=== PATIENT | male | born 1970 | race Caucasian/White ===

== ENCOUNTER → 2022-03-20 14:39 | Outpatient (CLI) | payer OTHER, SELFPAY ==
--- NOTE | 2022-03-20 | DI.ECHO.S_ITS ---
[facility] +---------+ : : [address] : [place] : : : : [id number] : : : : Phone: [phone]+ Echocardiogram Report + + :Name: DEIRDRE MAXWELL Study Date: 03/20/2022 Height: 67 in : :[facility] ReadingLocation: Weight: 172 lb: : Gender: Male BSA: 1.9 m2 : :: 1970 Age: 51 yrs BP: 92/66 mmHg: :Reason For Study: Congestive Heart Failure : :Ordering Physician: LIZ, : :RITIKA Performed By: Hernandez Pablo : :Referring: RITIKA HILL : + + Interpretation Summary The ejection fraction is estimated to be 25-30%. There is hypokinesis of the basal to mid anterior wall. The mid to distal anterior, entire anteroseptal, apical, mid to distal lateral and distal inferolateral ruiz are akinetic with myocardial thinning. Grade III diastolic dysfunction. The right ventricle is normal in size and function. No significant valvular abnormalities. Unable to estimate PASP. Procedure: A two-dimensional transthoracic echocardiogram with color flow and Doppler was performed. The study quality was technically adequate. There is no prior echocardiogram noted for this patient. A contrast injection of Definity was performed to improve assessment of LV function. Left Ventricle: The left ventricle is normal in size and wall thickness. The ejection fraction is estimated to be 25-30%. There is hypokinesis of the basal to mid anterior wall. The mid to distal anterior, entire anteroseptal, apical, mid to distal lateral and distal inferolateral ruiz are akinetic with myocardial thinning. Diastolic parameters suggest a restrictive filling pattern consistent with probable significantly elevated filling pressures. Right Ventricle: The right ventricle is normal in size and function. Atria: Both atria are normal in size. The interatrial septum grossly appears intact with no obvious evidence for an atrial septal defect. Mitral Valve: The mitral valve is normal in structure and function. There is trace mitral regurgitation. Aortic Valve: The aortic valve is normal in structure and function. There is no aortic valve stenosis. No aortic regurgitation is present. Tricuspid Valve: The tricuspid valve is normal in structure and function. No tricuspid regurgitation. Pulmonary artery pressures cannot be estimated because of the lack of a measurable TR jet velocity. Pulmonic Valve: The pulmonic valve is normal in structure and function. There is no pulmonic valvular regurgitation. Great Vessels: The aortic root is normal size. The ascending aorta could not be visualized. The IVC is of normal diameter and collapses greater than 50% with a sniff. This suggests a low right atrial pressure of 3 mm Hg. Pericardium/ Pleura There is no pericardial effusion. There is no pleural effusion. MMode/2D Measurements & Calculations LVIDd: 5.3 cm LVOT diam: 1.9 cm LVIDs: 4.3 cm Ao root diam: 2.6 cm FS: 19.6 % IVSd: 0.70 cm LVPWd: 0.60 cm LV cabrales. diameter/BSA (cm/m^2): 2.8 LV sys. diameter/BSA (cm/m^2): 2.3 LA dimension: 3.2 cm RA long axis: 4.2 cm LA A2 area: 19.1 cm2 LA A4 area: 14.6 cm2 LA length (vol): 5.6 cm LA vol: 42.6 ml LA vol index: 22.5 ml/m2 LVLs ap4: 7.8 cm LVLd ap2: 7.8 cm LVLs ap2: 7.1 cm TAPSE_phl: 2.1 cm Doppler Measurements & Calculations Ao V2 max: 143.0 cm/sec LVOT Max Barrington: 101.0 cm/sec Ao V2 mean: 98.6 cm/sec LV V1 max P.1 mmHg Ao max P.0 mmHg LV V1 VTI: 20.4 cm Ao mean P.0 mmHg ALDO(I,D): 2.0 cm2 Ao V2 VTI: 28.4 cm ALDO(V,D): 2.0 cm2 sev ratio: 0.72 ALDO indexed to BSA (cm^2/m^2): 1.1 MV E max barrington: 98.5 cm/sec SV(LVOT): 57.8 ml MV A max barrington: 28.7 cm/sec MV E/A: 3.4 Med Peak E' Barrington: 5.8 cm/sec E/E' med: 17.0 Lat Peak E' Barrington: 10.6 cm/sec E/E' lat: 9.3 E/e' average: 13.1 MV dec time: 0.14 sec AV VR_phl: 0.71 MV P1/2t-pr_phl: 42.0 msec ALDO(VTI)/BSA_phl: 1.1 Reading Physician:05:04 PM
== END ==
PROVIDERS: PCP Nurse Practitioner Family; Referring Provider Nurse Practitioner Acute Care; Visit Provider Nurse Practitioner Acute Care
DX: I50.20 Unspecified systolic (congestive) heart failure (principal)
CPT/HCPCS: C8929; Q9957

== ENCOUNTER → 2022-05-14 13:34 | Outpatient (CLI) | payer OTHER, SELFPAY ==
--- NOTE | 2022-05-14 13:39 | DI.RAD.S_ITS ---
PROCEDURE: XR CHEST 2V INDICATIONS: ASSESS PM LEADS TECHNIQUE: 2 views of the chest were acquired. COMPARISON: [facility], , XR CHEST 1 VIEW, 05/11/2022, 15:08. FINDINGS: Surgical changes and devices: Stable appearance and positioning of left chest AICD. Lungs and pleura: Lungs are clear. No pleural effusions or pneumothorax. Mediastinum: Mediastinal contours are normal. Heart size is normal. Bones and chest wall: No suspicious bony abnormalities. Soft tissues appear unremarkable. IMPRESSION: Stable chest compared to 05/11/2022. Dictated by: Kevin Clement RR Interpreted: Homar Box MD on 05/14/2022 at 14:03 Transcribed by: LUIS EDUARDO on 05/14/2022 at 14:04 Approved by: Homar Box M.D. on 05/14/2022 at 14:16
== END ==
PROVIDERS: PCP Nurse Practitioner Family; Referring Provider Internal Medicine Cardiovascular Disease; Visit Provider Internal Medicine Cardiovascular Disease
DX: I47.29 Other ventricular tachycardia (principal); Z95.810 Presence of automatic (implantable) cardiac defibrillator
CPT/HCPCS: 71046

== ENCOUNTER 2023-06-20 08:42 | Day surgery (SDC) | payer OTHER, SELFPAY ==
--- NOTE | 2023-06-20 | PATH_ITS ---
[facility] Accession Number: [id number] No. of containers..04 Tissue . 01 Material submitted: . PART A: colon - CECAL POLYPS X2 PART B: colon - TRANSVERSE COLON POLYPS PART C: colon - DESCENDING COLON POLYPS PART D: rectum - RECTAL POLYP . 01 Diagnosis: A. Cecal Polyps: Sessile serrated adenoma x1. Tubular adenoma x1. . B. Transverse Colon Polyps: Tubular adenoma x1. Hyperplastic polyp x1. . C. Descending Colon Polyps: Hyperplastic polyp x2. . D. Rectal Polyp: Tubular adenoma. MRV 07/02/2023 1304 Local . 01 Electronically signed: . Rosendo Mary MD, PhD, Pathologist NPI- [id number] . 01 Gross description: . Part A: CECAL POLYPS X2: Received in formalin is multiple fragment(s) of brewster, soft tissue measuring 1.5 x 0.5 x 0.2 cm in aggregate submitted entirely in 1 cassette(s) Part B: TRANSVERSE COLON POLYPS: Received in formalin is 2 fragment(s) of brewster, soft tissue measuring 0.7 x 0.3 x 0.2 cm to 0.4 x 0.2 x 0.1 cm submitted entirely in 1 cassette(s) Part C: DESCENDING COLON POLYPS: Received in formalin is 2 fragment(s) of brewster, soft tissue measuring 0.5 x 0.1 x 0.1 cm to 0.3 x 0.1 x 0.1 cm submitted entirely in 1 cassette(s) Part D: RECTAL POLYP: Received in formalin is multiple fragment(s) of brewster, soft tissue measuring 2.0 x 1.0 x 0.4 cm in aggregate submitted entirely in 1 cassette(s) /AAY 06/21/2023 0445 Local . 01 Pathologist provided ICD-10: D12.6, D12.8 . 01 CPT . 037826, 467707, 280771, 770351 Performed at: [facility] [address] [place] [address] [id number] MD Reymundo Marinelli MD Phone: [phone]
[2023-06-20] MEDS: LACTATED RINGERS 1,000 ML 120 ML IV (09:20)
[2023-06-20 09:27] VITALS: BP 144/103; PULSE 78; RESP 16; TEMP 36.2; O2SAT 98; BMI 28.6
--- NOTE | 2023-06-20 10:02 | PM.PREOP ---
Pre-operative Note COVID-19 COVID-19 status: Not tested Interval Note History & Physical reviewed/Exam performed by Physician: Yes Changes to H&P: No ASA Class (for procedural sedation): III
[2023-06-20] MEDS: GLUCAGON,HUMAN RECOMBINANT 1 MG/ML VIAL IV (10:38)
[2023-06-20 10:55] VITALS: BP 110/7; PULSE 75; RESP 16; TEMP 36.3; O2SAT 92
--- NOTE | 2023-06-20 10:57 | PM.OP.COLON ---
Operative Date/Time/Diagnoses Date of procedure: 06/20/23 Time of procedure: 10:57 Pre-op diagnosis: Positive fit test Post-op diagnosis: same Procedure & Clinicians Study performed: Colonoscopy Same procedure as scheduled: Yes Surgeon: Mitchel Molina Procedure Notes Procedure in detail: Surgeon: Mitchel Molina MD Anesthesia: Kayleen Dillon TI[employer]ER Procedure: The patient was brought to the endoscopy suite, placed in left lateral decubitus position. The patient was connected to monitoring devices. A time-out was performed. Sedation was administered. Once the patient was adequately sedated, a digital rectal exam was performed and was normal. The scope was then inserted and advanced to the cecum where the appendiceal orifice was identified and photographed. The scope was then slowly withdrawn over greater than 6 minutes. The mucosa was thoroughly inspected. There were 2 5 mm polyps in the cecum removed with cold snare and sent together. There were 3 5 mm polyps in the transverse colon removed with cold snare and sent together. There were 2 5 mm polyps in the descending colon removed with cold snare and sent together. There was moderate sigmoid diverticulosis. There was a 1.2 cm polyp in the upper third of the rectum removed piecemeal with cold and hot snare. The scope was retroflexed in the rectum. There were significant internal hemorrhoids. The scope was straightened and removed. The patient was awakened and brought to recovery. Scope withdrawal time: 31 minutes Sedation time: 36 minutes EBL: 5 mL Findings: Sigmoid diverticulosis, 2 small polyps in the cecum, 3 small polyps transverse colon, 2 small polyps descending 0.2 cm rectal Post-procedure Disposition: PACU
[2023-06-20 11:00] VITALS: BP 113/76; PULSE 69; RESP 12; O2SAT 100
[2023-06-20 11:05] VITALS: BP 111/78; PULSE 69; RESP 12; O2SAT 100
[2023-06-20 11:20] VITALS: BP 119/84; PULSE 66; RESP 12; TEMP 36.4; O2SAT 100
== END 2023-06-20 11:25 | disposition home or self-care (01) ==
PROVIDERS: PCP Registered Nurse; Referring Provider Surgery; Visit Provider Surgery
PROC: 0DJD8ZZ Inspection of Lower Intestinal Tract, Via Natural or Artificial Opening Endoscopic (ICD-10-PCS; CPT 45378; principal; 2023-06-20 09:45)
DX: Z12.11 Encounter for screening for malignant neoplasm of colon (principal); R19.5 Other fecal abnormalities; K57.30 Diverticulosis of large intestine without perforation or abscess without bleeding; D12.0 Benign neoplasm of cecum; D12.3 Benign neoplasm of transverse colon; D12.4 Benign neoplasm of descending colon; D12.8 Benign neoplasm of rectum
CPT/HCPCS: 45385; 82962; J1610; J2405; J2704

== ENCOUNTER → 2024-02-28 13:58 | Outpatient (CLI) | payer OTHER, SELFPAY ==
--- NOTE | 2024-02-28 14:00 | DI.ECHO.S_ITS ---
[place] [facility]---------+ [facility] : : [address] : : [place] : : [id number] : : Phone: [phone] Echocardiogram Report + + :Name: ALISSADEIRDRE Study Date: 02/28/2024 Height: 67 in : :Hospital ReadingLocation: Weight: 195 lb: : Gender: Male BSA: 2.0 m2 : :: 1970 Age: 53 yrs BP: 90/62 mmHg: :Reason For Study: Congestive Heart Failure : :Ordering Physician: YIMI, : :MADELINE Nance Performed By: Cyndy Kingsley : :Referring: MADELINE DICKEY : + + Interpretation Summary The ejection fraction is estimated to be 25-30%. The mid to distal anterior, entire anteroseptal, apical, mid to distal lateral and distal inferolateral ruiz are akinetic with myocardial thinning. Diastolic function could not be accurately assessed due to unobtainable data. The right ventricle is normal in size and function. No significant valvular abnormalities. Pulmonary artery pressures cannot be estimated because of the lack of a measurable TR jet velocity but the IVC suggests a CVP of around 3 mmHg. Compared to the prior study dated 03/20/2022, no significant change. Procedure: A two-dimensional transthoracic echocardiogram with color flow and Doppler was performed. The study quality was technically difficult. Comparison is made with the echocardiogram of 03-20-22. A contrast injection of Definity was performed to improve assessment of LV function. The heart rate ranged between 64-66 bpm during the study. Left Ventricle: The left ventricle is normal in size and wall thickness. The ejection fraction is estimated to be 25-30%. The mid to distal anterior, entire anteroseptal, apical, mid to distal lateral and distal inferolateral ruiz are akinetic with myocardial thinning. Diastolic function could not be accurately assessed due to unobtainable data. Right Ventricle: There is a pacemaker lead in the right ventricle. The right ventricle is normal in size and function. Atria: The left atrial size is normal. Right atrial size is normal. The interatrial septum is not well visualized. Mitral Valve: The mitral valve is normal in structure and function. There is no mitral regurgitation noted. Aortic Valve: The aortic valve opens well. There is no aortic valve stenosis. There is trace aortic regurgitation. Tricuspid Valve: The tricuspid valve leaflets are thin and pliable. There is a trace or physiologic amount of tricuspid regurgitation. Pulmonary artery pressures cannot be estimated because of the lack of a measurable TR jet velocity but the IVC suggests a CVP of around 3 mmHg. Pulmonic Valve: The pulmonic valve is not well visualized. Great Vessels: The aortic root is normal size. The ascending aorta is normal in size. The aortic arch is normal in size. The IVC is of normal diameter and collapses greater than 50% with a sniff. This suggests a low right atrial pressure of 3 mm Hg. Pericardium/ Pleura There is no pericardial effusion. There is no pleural effusion. MMode/2D Measurements & Calculations LVIDd: 4.8 cm LVOT diam: 1.9 cm LVIDs: 4.2 cm Ao root diam: 2.8 cm FS: 13.0 % asc Aorta Diam: 3.0 cm IVSd: 0.68 cm Ao Arch Diam (Prox Trans): 2.3 cm LVPWd: 0.79 cm LV cabrales. diameter/BSA (cm/m^2): 2.4 LV sys. diameter/BSA (cm/m^2): 2.1 LA A2 area: 11.6 cm2 RA long axis: 4.0 cm LA A4 area: 13.6 cm2 RA area: 11.0 cm2 LA length (vol): 4.9 cm RA vol: 25.7 ml LA vol: 27.4 ml RA : 12.9 ml/m2 LA vol index: 13.7 ml/m2 IVC diam: 1.5 cm RVD1 (basal): 2.8 cm TAPSE: 1.7 cm Doppler Measurements & Calculations Ao V2 max: 130.8 cm/sec LVOT Max Barrington: 95.1 cm/sec Ao V2 mean: 89.5 cm/sec LV V1 max P.6 mmHg Ao max P.8 mmHg LV V1 VTI: 18.2 cm Ao mean P.7 mmHg ALDO(I,D): 1.9 cm2 Ao V2 VTI: 27.3 cm ALDO(V,D): 2.1 cm2 sev ratio: 0.67 ALDO indexed to BSA (cm^2/m^2): 0.97 MV E max barrington: 68.0 cm/sec TR max barrington: 224.6 cm/sec MV A max barrington: 53.3 cm/sec TR max P.2 mmHg MV E/A: 1.3 PA V2 max: 77.9 cm/sec Med Peak E' Barrington: 7.1 cm/sec PA V2 mean: 49.6 cm/sec E/E' med: 9.6 PA mean P.2 mmHg Lat Peak E' Barrington: 7.9 cm/sec PA pr(Accel): 24.2 mmHg E/E' lat: 8.7 E/e' average: 9.1 MV dec time: 0.17 sec SV(LVOT): 52.9 ml Reading Physician:04:31 PM
== END ==
LOC: ECHO 13:59
PROVIDERS: PCP Registered Nurse; Referring Provider Internal Medicine Cardiovascular Disease; Visit Provider Internal Medicine Cardiovascular Disease
DX: I50.20 Unspecified systolic (congestive) heart failure (principal)
CPT/HCPCS: 93306; Q9957